=== PATIENT | female | born 1960 | race Caucasian/White ===

== ENCOUNTER → 2017-11-29 | Outpatient (CLI) | payer BC ==
--- NOTE | 2017-11-29 19:35 | Diagnostic Imaging Report ---
INDICATION: Routine screening. Comparison is made with prior mammogram from 01/10/2015. The current study was also evaluated with a Computer Aided Detection (CAD) system. Scattered fibroglandular densities are identified bilaterally. The parenchymal pattern appears stable. No dominant mass or malignant-appearing microcalcifications are seen. There are benign calcifications bilaterally. IMPRESSION: No mammographic features suspicious for malignancy are identified. ACR BI-RADS Category 2: Benign findings. Result letter will be mailed to the patient. Note: At least 10% of breast cancer is not imaged by mammography. Dictated by: Dictated on workstation # [id number]
== END ==
LOC: RAD 15:24
PROVIDERS: ATTEND Nurse Practitioner Family
DX: Z12.31 Encounter for screening mammogram for malignant neoplasm of breast (principal)
CPT/HCPCS: 77067

== ENCOUNTER → 2018-03-28 | Outpatient (CLI) | payer BC ==
--- NOTE | 2018-03-28 15:36 | Diagnostic Imaging Report ---
INDICATION: Pain in the outer left breast as well as the medial retroareolar left breast. The patient also reports a palpable lump in the 6 o'clock retroareolar location. COMPARISON: 11/29/2017 and 01/10/2015. TECHNIQUE: 2D and 3 D lateral left diagnostic mammography was performed including conventional CC, MLO, and mediolateral views as well as a spot compression CC view. FINDINGS: The left breast is heterogeneously dense, limiting the sensitivity of mammography. No dominant mass is identified. No suspicious calcifications are seen. The left axilla is unremarkable. IMPRESSION: No suspicious mammographic abnormality is seen. Even so, further evaluation of the left breast with ultrasound is recommended. ACR BI-RADS Category 0: Incomplete. (Needs additional imaging evaluation). Result letter will be mailed to the patient. Note: At least 10% of breast cancer is not imaged by mammography. Dictated by: Dictated on workstation # [id number]
--- NOTE | 2018-03-28 15:41 | Diagnostic Imaging Report ---
INDICATION: Pain in the left breast. FINDINGS: Sonographic interrogation of the area of pain at the 3 o'clock location in the left breast 6 cm from the nipple as well as the 10 o'clock location 1 cm from the nipple. In addition, the 6 o'clock retroareolar region was evaluated at the area of the patient's pain and lump. No sonographic abnormality is identified in the left breast. No solid or cystic mass is detected. IMPRESSION: No sonographic abnormality is identified. Continued close clinical and self breast exams are recommended to confirm stability of the areas of pain and palpable abnormality. ACR BI-RADS Category 1: Negative. Dictated by: Dictated on workstation # [id number]
== END ==
LOC: RAD 13:27
PROVIDERS: ATTEND Nurse Practitioner Family
DX: N63.20 Unspecified lump in the left breast, unspecified quadrant (principal)
CPT/HCPCS: 76642

== ENCOUNTER → 2019-10-24 | Outpatient (CLI) | payer BC, OTHER ==
--- NOTE | 2019-10-24 10:55 | Diagnostic Imaging Report ---
PROCEDURE: MRI lumbar spine. TECHNIQUE: Multiplanar, multisequence MRI of the lumbar spine was performed without contrast. INDICATION: Low back pain. COMPARISON: None. FINDINGS: Normal alignment. Vertebral body heights preserved. Mild to moderate degenerative endplate changes greatest at L2-L3 and L4-L5. Bone marrow signal is otherwise unremarkable. No abnormal signal in the conus which terminates at L1-L2. Normal morphology of the cauda equina. The visualized paravertebral soft tissues are unremarkable. L1-L2: Normal. L2-L3: Posterior disc osteophyte complex results in mild bilateral lateral recess narrowing. No spinal canal narrowing. Mild bilateral neural foraminal narrowing. L3-L4: No spinal canal narrowing. Mild bilateral lateral recess narrowing due to annular disc bulge. Mild bilateral neural foraminal narrowing. L4-L5: Mild bilateral lateral recess narrowing. No spinal canal narrowing. Disc space height loss and facet arthropathy result in moderate to severe bilateral neural foraminal narrowing. L5-S1: Mild left lateral recess narrowing due to facet arthropathy and posterior disc osteophyte complex. Moderate right and severe left neural foraminal narrowing. IMPRESSION: 1. Spondylotic changes result in high-grade bilateral neural foraminal narrowing at L4-L5 and L5-S1. 2. No high-grade spinal canal narrowing. 3. No acute osseous findings. Dictated by: Dictated on workstation # [id number]
--- NOTE | 2019-10-24 14:07 | Diagnostic Imaging Report ---
INDICATION: Postmenopausal female. COMPARISON: None. FINDINGS: AP Spine L2-L4: [BMD (g/cm2): 1.069] [T-Score: -1.1] [Z-Score: -0.2] [BMD Previous: NA] [BMD % Change: NA] LT Hip Neck: [BMD (g/cm2): 0.914] [T-Score: -0.9] [Z-Score: 0.1] LT Hip Total: [BMD (g/cm2):0.936] [T-Score:-0.6] [Z-Score: 0.1] [BMD Previous: NA] [BMD % Change: NA] RT Hip Neck: [BMD (g/cm2):0.923] [T-Score:-0.8] [Z-Score:0.2] RT Hip Total: [BMD (g/cm2):0.958] [T-score:-0.4] [Z-Score:0.3] [BMD Previous:NA] [BMD % Change:NA] *Indicates significant change from prior examination based on 95% confidence level. World Health Organization criteria for BMD interpretation classify patients as Normal (T-score at or above -1.0), Osteopenic (T-score between -1.0 and -2.5) or Osteoporotic (T-score at or below -2.5). LIMITATIONS AND MODIFICATION: None. FRACTURE RISK (FRAX SCORE): The ten year probability of (%): Major Osteoporotic Fracture: [6.8] Hip Fracture: [0.3] IMPRESSION: 1. Osteopenia (Low bone mass). 2. Baseline examination. 3. See below National Osteoporosis Foundation guidelines on when to potentially initiate pharmacologic therapy. Based on the National Osteoporosis Foundation Guidelines, pharmacologic treatment should be initiated in any of the following, unless clinical conditions suggest otherwise: * Any patient with prior fragility fracture of the hip or vertebrae. A spine fracture indicates 5X risk for subsequent spine fracture and 2X risk for subsequent hip fracture. * Osteoporosis (T-score <-2.5). * Postmenopausal women and men age 50 and older with low bone mass/osteopenia (T-score between -1.0 and -2.5) by DXA and 10-year major osteoporotic fracture greater than 20% or a 10-year probability of hip fracture greater than 3%. These fracture risks are supplied above in the FRAX score, if applicable. * Clinician judgement and/or patient preferences may indicate treatment for people with 10-year fracture probabilities above or below these levels. Dictated by: Dictated on workstation # [id number]
== END ==
LOC: RAD 09:13
PROVIDERS: ATTEND Nurse Practitioner Primary Care
DX: M48.07 Spinal stenosis, lumbosacral region (principal); M51.16 Intervertebral disc disorders with radiculopathy, lumbar region; M47.816 Spondylosis without myelopathy or radiculopathy, lumbar region; M85.88 Other specified disorders of bone density and structure, other site; Z78.0 Asymptomatic menopausal state
CPT/HCPCS: 72148; 77080

== ENCOUNTER → 2020-05-21 | Outpatient (CLI) | payer OTHER ==
--- NOTE | 2020-05-21 12:56 | Diagnostic Imaging Report ---
INDICATION: Routine screening. Comparison is made with prior mammogram from 11/29/2017 and 01/10/2015. 2-D and 3-D bilateral screening mammography was performed with CAD. Scattered fibroglandular densities are identified bilaterally. The parenchymal pattern is stable. No mass or malignant appearing microcalcifications are seen. Axillae are unremarkable. IMPRESSION: BI-RADS Category 1 No mammographic features suspicious for malignancy are identified. ACR BI-RADS Category 1: Negative. Result letter will be mailed to the patient. Note: At least 10% of breast cancer is not imaged by mammography. Dictated by: Dictated on workstation # [id number]
== END ==
LOC: RAD 09:04
PROVIDERS: ATTEND Nurse Practitioner
DX: Z12.31 Encounter for screening mammogram for malignant neoplasm of breast (principal)
CPT/HCPCS: 77063; 77067